=== PATIENT | female | born 1980 | race Two or more races ===

== ENCOUNTER → 2024-06-03 | Outpatient (BNVA) | payer BC, SELFPAY | END | disposition home or self-care (01) | PROVIDERS: PCP Internal Medicine; Referring Provider Internal Medicine; Visit Provider Urology | DX: N35.92 Unspecified urethral stricture, female (principal); Z96.0 Presence of urogenital implants | CPT/HCPCS: 52281; 81003; 96372; A4217; A4649; C1894; J3260; A9270 ==

== ENCOUNTER → 2024-07-02 | Outpatient (CLI) | payer BC, SELFPAY ==
--- NOTE | 2024-07-02 16:00 | XR_ITS ---
Examination: Retroperitoneal ultrasound, complete Technique: Multiple high resolution grayscale images of the retroperitoneum obtained, including kidneys and bladder. Exam date and time:July 02, 2024 1545 hours INDICATIONS: History flank pain kidney stones, nephrolithotomy May 10, 2024 FINDINGS: Right kidney 10.7 x 5.0 x 5.5 cm renal cortex 1.9 cm Minimal hydronephrosis Left kidney 11.5 x 5.9 x 5.3 cm cortex 2.2 cm Midpole calculus 7 mm lower pole calculus 17 mm Mild to moderate left hydronephrosis No bladder mass or bladder calculi Bladder prevoid volume 266 cc postvoid 36 cc IMPRESSION: Minimal right hydronephrosis Mild to moderate left hydronephrosis Left renal calculi as above
== END | disposition home or self-care (01) ==
LOC: CDIM 15:28
PROVIDERS: PCP Internal Medicine; Referring Provider Urology; Visit Provider Urology
DX: N13.30 Unspecified hydronephrosis (principal); N20.0 Calculus of kidney
CPT/HCPCS: 76770

== ENCOUNTER → 2024-07-05 | Outpatient (BNVA) | payer BC, SELFPAY | END | disposition home or self-care (01) | PROVIDERS: PCP Internal Medicine; Referring Provider Internal Medicine; Visit Provider Urology | DX: N13.30 Unspecified hydronephrosis (principal); E66.9 Obesity, unspecified; Z68.28 Body mass index [BMI] 28.0-28.9, adult | CPT/HCPCS: 81003; 99212; G0463 ==

== ENCOUNTER → 2024-08-22 | Outpatient (CLI) | payer BC, SELFPAY ==
[2024-08-22 16:16] LABS: Collection Type, Urine Clean Catch
[2024-08-22 16:55] LABS: Glucose Estimated Average 111 mg/dL (80-131); Hemoglobin A1C 5.5 % Hgb (4.8-6.0)
[2024-08-22 17:05] LABS: HCG Qualitative,Urine Negative
[2024-08-22 17:14] LABS: Bacteria,Urine Rare; Bilirubin,Urine Negative (Negative); Blood,Urine Trace (Negative); Clarity,Urine Clear (Clear/Hazy); Color,Urine Colorless (Lt Yel-Yel); Glucose, Urine Negative (Negative); Ketones,Urine Negative (Negative); Leukocyte Esterase,Urine Negative (Negative); Nitrite,Urine Negative (Negative); PH,Urine 6.5 (5.0-7.0); Protein,Urine Negative (Neg - Trace); RBC,Urine 1 /hpf (0-3); Specific Gravity,Urine 1.007 (1.001-1.035); Squamous Epithelial Cell,Urine 1 /hpf (0-5); Urobilinogen,Urine Negative mg/dL (0.0-1.0); WBC,Urine 2 /hpf (0-5)
[2024-08-22 17:46] LABS: Vitamin D 25 Hydroxy Total 39.2 ng/mL (7.3-40.2)
[2024-08-22 17:51] LABS: Anion Gap 10 (7-16); BUN/Creatinine Ratio 17 Ratio (12-20); Blood Urea Nitrogen 12 mg/dL (9-23); Calcium 9.3 mg/dL (8.3-10.6); Calcium (Corrected) 9.3 mg/dL (8.5-10.1); Carbon Dioxide 25.8 mMol/L (20.0-31.0); Chloride 102 mMol/L (98-107); Creatinine (Component) 0.7 mg/dL (0.6-1.3); Glucose 93 mg/dL (74-106); Magnesium 2.1 mg/dL (1.6-2.6); Osmolality,Calculated 275 (275-295); Phosphorous 3.9 mg/dL (2.4-5.1); Potassium 4.1 mMol/L (3.4-5.1); Sodium 138 mMol/L (136-145); Uric Acid 4.1 mg/dL (3.1-7.8); eGFR > 60 See Note
== END | disposition home or self-care (01) ==
PROVIDERS: PCP Pediatrics; Referring Provider Internal Medicine; Visit Provider Internal Medicine
DX: N20.0 Calculus of kidney (principal); Z32.00 Encounter for pregnancy test, result unknown
CPT/HCPCS: 36415; 80069; 81001; 81025; 82306; 83036; 83735; 84550

== ENCOUNTER → 2024-08-23 | Outpatient (CLI) | payer BC, SELFPAY ==
--- NOTE | 2024-08-23 11:00 | XR_ITS ---
Examination: CT abdomen and pelvis without contrast. Coronal 3-D reconstructions. Sagittal 2-D reconstructions. Date and time of exam:August 23, 2024 1113 hours Comparison December 07, 2023 INDICATIONS: History kidney stones, months with flank pain several weeks CTDI: vol (mGy): 10.2 DLP: (mGycm): 1018 Technique: Axial images of the abdomen have been obtained, 3 mm slice thickness Intravenous contrast material has not been administered. Low dose protocols were performed. One or more of the following dose reduction techniques were used; automated exposure control, adjustment of the mA and/or KV according to patient size, use of iterative reconstruction technique. Findings: Mild nodular parenchymal disease in both lower lung zones Fatty liver no focal liver lesions No gallstones Spleen not enlarged No pancreatic or adrenal mass Moderate left hydronephrosis, 6 mm proximal left ureteral calculus, coronal image 74 9 mm lower pole left renal calculus Aorta normal size No bowel obstruction No pericecal inflammatory change Anteverted uterus no adnexal mass No bladder mass or bladder calculi The osseous structures are intact IMPRESSION: Moderate left hydronephrosis, 6 mm proximal left ureteral calculus 9 mm lower pole left renal calculus
== END | disposition home or self-care (01) ==
LOC: CCTX 10:56
PROVIDERS: PCP Internal Medicine; Referring Provider Urology; Visit Provider Urology
DX: N13.30 Unspecified hydronephrosis (principal); N20.0 Calculus of kidney
CPT/HCPCS: 74176

== ENCOUNTER → 2024-09-06 | Outpatient (BNVA) | payer BC, SELFPAY | END | disposition home or self-care (01) | PROVIDERS: PCP Internal Medicine; Referring Provider Internal Medicine; Visit Provider Urology | DX: N13.2 Hydronephrosis with renal and ureteral calculous obstruction (principal); E66.9 Obesity, unspecified; Z68.29 Body mass index [BMI] 29.0-29.9, adult | CPT/HCPCS: 81003; 99212; G0463 ==

== ENCOUNTER → 2024-09-25 | Day surgery (SDC) | payer BC, SELFPAY ==
[2024-09-24 11:05] VITALS: BMI 28.8
[2024-09-24 13:32] LABS: HCG Qualitative,Urine Negative
[2024-09-25] MEDS: VANCOMYCIN/NS 1 GM IVPB 200 ML IV (11:22)
[2024-09-25] MEDS: RINGERS LACTATED 1000 ML 1,000 ML 20 ML IV (11:22)
[2024-09-25 11:55] VITALS: BP 144/84; PULSE 83; RESP 16; TEMP 36.6; O2SAT 98; BMI 28.4
--- NOTE | 2024-09-25 14:29 | SUR.PREOP ---
pt cancelled per dr khan. all belongings taken. iv removed intact. pt will follow up with doctor tomorrow.
== END | disposition home or self-care (01) ==
LOC: S2EX 10:57
PROVIDERS: Anesthesiology; PCP Internal Medicine; Referring Provider Urology; Visit Provider Urology
PROC: 0TJB8ZZ Inspection of Bladder, Via Natural or Artificial Opening Endoscopic (ICD-10-PCS; CPT 52000; principal; 2024-09-25 13:00)
DX: N20.0 Calculus of kidney (principal); Z53.9 Procedure and treatment not carried out, unspecified reason
CPT/HCPCS: 52354; 81025; J3370; J7120

== ENCOUNTER → 2024-10-08 | Outpatient (CLI) | payer BC, SELFPAY ==
--- NOTE | 2024-10-08 14:43 | XR_ITS ---
Examination: CT abdomen and pelvis without contrast. Coronal 3-D reconstructions. Sagittal 2-D reconstructions. Date and time of exam:October 08, 2024 1531 hours INDICATIONS: History flank pain kidney stones months, left hydronephrosis 6 mm proximal left ureteral calculus on CT stone study August 23, 2024 CTDI: vol (mGy): 9.08 DLP: (mGycm): 508 Technique: Axial images of the abdomen have been obtained, 3 mm slice thickness Intravenous contrast material has not been administered. Low dose protocols were performed. One or more of the following dose reduction techniques were used; automated exposure control, adjustment of the mA and/or KV according to patient size, use of iterative reconstruction technique. Findings: Scarring versus pneumonia left base clinical correlation advised No focal liver or splenic lesions Contracted gallbladder No pancreatic or adrenal mass Numerous left renal calculi again noted, the largest in the lower pole 10 mm There remains moderate left hydronephrosis with 5.6 mm proximal left ureteral calculus Aorta normal size No bowel obstruction Normal appendix No bladder calculi No pelvic mass Intact osseous structures IMPRESSION: Numerous left renal calculi again noted There remains moderate left hydronephrosis with 5.6 mm proximal left ureteral calculus
[2024-10-08 15:14] LABS: HCG Qualitative,Urine Negative
== END | disposition home or self-care (01) ==
PROVIDERS: PCP Internal Medicine; Referring Provider Urology; Visit Provider Urology
DX: Z32.00 Encounter for pregnancy test, result unknown (principal); N20.0 Calculus of kidney; N13.30 Unspecified hydronephrosis; N20.1 Calculus of ureter
CPT/HCPCS: 74176; 81025

== ENCOUNTER → 2024-10-18 | Outpatient (BNVA) | payer BC, SELFPAY | END | disposition home or self-care (01) | PROVIDERS: PCP Internal Medicine; Referring Provider Internal Medicine; Visit Provider Urology | DX: N13.2 Hydronephrosis with renal and ureteral calculous obstruction (principal); Z87.440 Personal history of urinary (tract) infections; Z87.442 Personal history of urinary calculi | CPT/HCPCS: 81003; 99212; G0463 ==

== ENCOUNTER → 2024-10-25 | Outpatient (CLI) | payer BC, SELFPAY ==
[2024-11-06 23:34] LABS: Stone Analysis Source NOT GIVEN
[2024-11-07 06:25] LABS: Stone Analysis Weight 0.132 g
== END | disposition home or self-care (01) ==
LOC: SLDO 15:49
PROVIDERS: Referring Provider Urology; Visit Provider Urology
DX: N20.0 Calculus of kidney (principal)
CPT/HCPCS: 82365

== ENCOUNTER → 2024-11-26 | Outpatient (BNVA) | payer BC, SELFPAY | END | disposition home or self-care (01) | PROVIDERS: PCP Internal Medicine; Referring Provider Internal Medicine; Visit Provider Urology | DX: N13.2 Hydronephrosis with renal and ureteral calculous obstruction (principal) | CPT/HCPCS: 81003; 99212; G0463 ==

== ENCOUNTER → 2024-12-18 | Outpatient (CLI) | payer BC, SELFPAY ==
--- NOTE | 2024-12-18 14:44 | XR_ITS ---
Examination: CT abdomen and pelvis without contrast. Coronal 3-D reconstructions. Sagittal 2-D reconstructions. Date and time of exam:December 28, 2024, 1600 hours Comparison October 08, 2024 INDICATION: History left flank pain 2 months, left hydronephrosis is 5.6 mm proximal left ureteral calculus on CT stone study October 08, 2024 CTDI: vol (mGy): 9.13 DLP: (mGycm): 503 Technique: Axial images of the abdomen have been obtained, 3 mm slice thickness Intravenous contrast material has not been administered. Low dose protocols were performed. One or more of the following dose reduction techniques were used; automated exposure control, adjustment of the mA and/or KV according to patient size, use of iterative reconstruction technique. Findings: No focal liver or splenic lesion Contracted gallbladder No pancreatic mass Multiple left renal calculi again depicted Mild left hydronephrosis, the proximal left ureteral calculus is no longer identified No bowel obstruction No diverticulitis No bladder calculi IMPRESSION: Left renal calculi Mild left hydronephrosis, the proximal left ureteral calculus is no longer identified
[2024-12-18 15:15] LABS: HCG Qualitative,Urine Negative
== END | disposition home or self-care (01) ==
PROVIDERS: PCP Internal Medicine; Referring Provider Urology; Visit Provider Urology
DX: N13.30 Unspecified hydronephrosis (principal); N20.2 Calculus of kidney with calculus of ureter; Z32.00 Encounter for pregnancy test, result unknown
CPT/HCPCS: 74176; 81025

== ENCOUNTER → 2024-12-20 | Outpatient (BNVA) | payer BC, SELFPAY | END | disposition home or self-care (01) | PROVIDERS: PCP Internal Medicine; Referring Provider Internal Medicine; Visit Provider Urology | DX: N20.0 Calculus of kidney (principal) | CPT/HCPCS: 81003; 99212; G0463 ==

== ENCOUNTER → 2025-05-01 | Outpatient (CLI) | payer BC, SELFPAY ==
[2025-05-01 15:18] LABS: Collection Type, Urine Clean Catch
[2025-05-01 17:25] LABS: Bacteria,Urine 3+; Bilirubin,Urine Negative (Negative); Blood,Urine Negative (Negative); Color,Urine Lt-Yellow (Lt Yel-Yel); Culture Indicated,Urine Contaminated; Glucose, Urine Negative (Negative); Ketones,Urine Negative (Negative); Leukocyte Esterase,Urine Positive (Negative); Nitrite,Urine Negative (Negative); PH,Urine 6.5 (5.0-7.0); Protein,Urine 1+ (Neg - Trace); RBC,Urine 14 /hpf (0-3); Specific Gravity,Urine 1.016 (1.001-1.035); Squamous Epithelial Cell,Urine 13 /hpf (0-5); Urobilinogen,Urine Negative mg/dL (0.0-1.0); WBC,Urine 25 /hpf (0-5)
[2025-05-01 17:47] LABS: Clarity,Urine Hazy (Clear/Hazy)
== END | disposition home or self-care (01) ==
LOC: SLDO 15:14
PROVIDERS: Referring Provider Urology; Visit Provider Urology
DX: R30.0 Dysuria (principal)
CPT/HCPCS: 81001

== ENCOUNTER → 2025-06-23 | Outpatient (BNVA) | payer BC, SELFPAY | END | disposition home or self-care (01) | PROVIDERS: PCP Internal Medicine; Referring Provider Internal Medicine; Visit Provider Urology | DX: N20.0 Calculus of kidney (principal) | CPT/HCPCS: 81003; 99213; G0463 ==

== ENCOUNTER → 2025-06-24 | Outpatient (CLI) | payer BC, SELFPAY ==
--- NOTE | 2025-06-24 15:19 | XR_ITS ---
Examination: CT abdomen and pelvis without contrast. Coronal 3-D reconstructions. Sagittal 2-D reconstructions. Date and time of exam: June 24, 2025, 1601 hours INDICATIONS: History kidney stones, left flank pain today CTDI: vol (mGy): 10.6 DLP: (mGycm): 625 Technique: Axial images of the abdomen have been obtained, 3 mm slice thickness Intravenous contrast material has not been administered. Low dose protocols were performed. One or more of the following dose reduction techniques were used; automated exposure control, adjustment of the mA and/or KV according to patient size, use of iterative reconstruction technique. Findings: Multiple subcentimeter pulmonary nodules at the lung bases No focal liver or splenic lesions Contracted gallbladder No pancreatic or adrenal mass Multiple renal calculi, the largest of the lower pole 11 mm Moderate left hydronephrosis, 7 mm distal left ureteral calculus Normal appendix No bowel obstruction No pelvic mass No bladder mass or bladder calculi IMPRESSION: Moderate left hydronephrosis, 7 mm distal left ureteral calculus
[2025-06-24 15:47] LABS: HCG Qualitative,Urine Negative
== END | disposition home or self-care (01) ==
LOC: CDIM 15:01 → COPL 15:04
PROVIDERS: PCP Internal Medicine; Referring Provider Urology; Visit Provider Radiology Diagnostic Radiology
DX: N13.2 Hydronephrosis with renal and ureteral calculous obstruction (principal); Z32.00 Encounter for pregnancy test, result unknown
CPT/HCPCS: 74176; 81025

== ENCOUNTER → 2025-06-24 | Outpatient (CLI) | payer BC, SELFPAY ==
[2025-07-02 03:04] LABS: Stone Analysis Source NOT GIVEN
[2025-07-02 06:26] LABS: Stone Analysis Weight 0.043 g
== END | disposition home or self-care (01) ==
LOC: SLDO 14:05
PROVIDERS: Referring Provider Urology; Visit Provider Urology
DX: N20.0 Calculus of kidney (principal)
CPT/HCPCS: 82365